=== PATIENT | female | born 1975 | race Caucasian/White ===

== ENCOUNTER 2017-11-21 14:00 | Emergency (ER) | payer SELFPAY ==
[2017-11-21 14:55] LABS: BILIRUBIN,URINE NEGATIVE (NEGATIVE); GLUCOSE, URINE (UA) NEGATIVE (NEGATIVE); KETONES,URINE (UA) TRACE mg/dL (NEGATIVE); LEUKOCYTE ESTERASE, URINE NEGATIVE (NEGATIVE); NITRITE,URINE NEGATIVE (NEGATIVE); OCCULT BLOOD,URINE MODERATE (NEGATIVE); PROTEIN,URINE NEGATIVE (NEGATIVE); UROBILINOGEN,URINE 0.2 (NORMAL) E.U./dL (NORMAL)
[2017-11-21 14:58] LABS: CLARITY,URINE CLEAR (CLEAR)
[2017-11-21 15:14] LABS: BACTERIA,URINE Few /HPF (None Seen); RBC,URINE 0-5 /HPF (0-5); SQUAMOUS EPITHELIAL CELL,UR MANY Squamous (<= Few)
[2017-11-21] MEDS ORDERED: SODIUM CHLORIDE 0.9% 1,000 ML IV ONE (16:09)
[2017-11-21] MEDS ORDERED: ACETAMINOPHEN 1,000 MG/100 ML 100 ML IV STA (16:19)
[2017-11-21 16:42] LABS: BASOPHILS # (AUTO) 0.1 10^3/uL (0.0-0.1); BASOPHILS % (AUTO) 0.5 %; EOSINOPHILS # (AUTO) 0.1 10^3/uL (0.0-0.7); EOSINOPHILS % (AUTO) 0.5 %; HGB - HEMOGLOBIN 15.5 g/dL (12.0-16.0); LYMPHOCYTES # (AUTO) 1.9 10^3/uL (1.5-3.5); LYMPHOCYTES % (AUTO) 17.3 %; MEAN CORPUSCULAR HEMOGLOBIN 31.3 pg (27.0-31.0); MEAN CORPUSCULAR HGB CONC 33.1 g/dL (32.0-36.0); MEAN CORPUSCULAR VOLUME 94.7 fL (81.0-99.0); MONOCYTES # (AUTO) 0.4 10^3/uL (0.0-1.0); MONOCYTES % (AUTO) 3.2 %; NEUTROPHILS # (AUTO) 8.8 10^3/uL (1.5-6.6); NEUTROPHILS % (AUTO) 78.5 %; PLT - PLATELET COUNT 273 10^3/uL (130-450); RED BLOOD COUNT 4.95 10^6/uL (4.20-5.40); RED CELL DISTRIBUTION WIDTH 12.9 % (12.0-15.0); WHITE BLOOD COUNT 11.2 x10^3/uL (4.8-10.8)
--- NOTE | 2017-11-21 16:54 | ED Physician Documentation ---
PD HPI ABD PAIN - Stated complaint Stated Complaint: ABD PX - Chief complaint Chief Complaint: Abd Pain - History obtained from History obtained from: Patient - History of Present Illness Timing - onset: Yesterday Timing - details: Gradual onset Quality: Pain Location: RLQ, Suprapubic Worsened by: Palpation Associated symptoms: Nausea, Diarrhea, Vaginal bleeding (spotting). No: Fever, Vomiting, Dysuria, Vaginal dc Similar symptoms before: Diagnosis (Feels similar to when she had an ectopic years ago.) - Treatment prior to arrival Treatment prior to arrival: Yesterday she started taking amoxicillin from an old supply. - Additional information Additional information: The patient is a 42-year-old female who presents with right lower quadrant/ pelvic pain that started yesterday and has become worse today. She reports nausea, without vomiting. She denies fever or dysuria. She has had scant vaginal spotting, and states that her last normal menstrual period was one week ago. She reports having watery diarrhea for years, but that it has been worse recently. Past surgical history is significant for 2, bilateral tubal ligation, and cholecystectomy. She started taking amoxicillin yesterday, from an old supply she had left over from a previous urinary tract infection. She reports her pain today feels similar to when she previously had an ectopic . Review of Systems Constitutional: denies: Fever Nose: denies: Congestion Throat: denies: Sore throat Cardiac: denies: Chest pain / pressure Respiratory: denies: Dyspnea, Cough GI: reports: Abdominal Pain, Nausea, Diarrhea (chronically). denies: Vomiting : reports: LMP (1 week ago), Vaginal bleeding (spotting). 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, Tubal ligation, Breast implants - Present Medications Home Medications: Ambulatory Orders Medication Instructions Recorded Confirmed Alprazolam [Xanax] 1 mg ORAL TID PRN 05/08/17 05/08/17 Propranolol [Inderal] 20 mg ORAL TID 05/08/17 05/08/17 Amoxicillin 11/21/17 HYDROcod/ACETAM 5/325 [[facility] 5/325] 1 - 2 ea PO Q6H PRN #15 tablet 11/21/17 - Allergies Allergies/Adverse Reactions: Allergies Allergy/AdvReac Type Severity Reaction Status Date / Time Sulfa (Sulfonamide Allergy Unknown Verified 11/21/17 14:10 Antibiotics) - Social History Does the pt smoke?: Yes Smoking Status: Current every day smoker Does the pt drink ETOH?: No Does the pt have substance abuse?: No - Immunizations Immunizations are current?: No - POLST Patient has POLST: No PD ED PE NORMAL - Vitals Vital signs reviewed: Yes (normal) - General General: Alert and oriented X 3, Well developed/nourished - HEENT HEENT: Atraumatic, Moist mucous membranes, Pharynx benign - Neck Neck: No adenopathy - Cardiac Cardiac: RRR, No murmur - Respiratory Respiratory: No respiratory distress, Clear bilaterally - Abdomen Abdomen: Normal bowel sounds, Soft, No organomegaly, Other (Tenderness to palpation in the right lower quadrant, without rebound tenderness or guarding.) - Female Female : Caustics Loader present - Back Back: No CVA TTP - Derm Derm: No rash - Extremities Extremities: No edema, No calf tenderness / cord - Neuro Neuro: Alert and oriented X 3, No motor deficit, No sensory deficit PD ED PE EXPANDED - Female Female : Normal external, Adnexal Tenderness (Tenderness to palpation in the right adnexa.), Cultures sent, Caustics Loader present. No: Vaginal Bleeding, Vaginal Discharge, CMT, Adnexal Mass Results - Vitals Vitals: Vital Signs - 24 hr 11/21/17 11/21/17 14:07 19:18 Temperature 37.2 C 36.9 C Heart Rate 79 71 Respiratory 16 16 Rate Blood Pressure 110/84 H 118/75 O2 Saturation 99 100 Oxygen O2 Source Room air - Labs Labs: Laboratory Tests 11/21/17 11/21/17 11/21/17 14:15 14:15 16:30 WBC 11.2 H RBC 4.95 Hgb 15.5 Hct 46.9 MCV 94.7 MCH 31.3 H MCHC 33.1 RDW 12.9 Plt Count 273 MPV 9.0 Neut # 8.8 H Lymph # 1.9 [place] # 0.4 Eos # 0.1 Baso # 0.1 Absolute Nucleated RBC 0.00 Nucleated RBC % 0.0 Sodium Potassium Chloride Carbon Dioxide Anion Gap BUN Creatinine Estimated GFR (MDRD) Glucose Calcium Total Bilirubin AST ALT Alkaline Phosphatase Total Protein Albumin Globulin Albumin/Globulin Ratio Lipase Urine Color YELLOW Urine Clarity CLEAR Urine pH 6.0 Ur Specific [place] >=1.030 H >=1.030 H Urine Protein NEGATIVE Urine Glucose (UA) NEGATIVE Urine Ketones TRACE Urine Occult Blood MODERATE H Urine Nitrite NEGATIVE Urine Bilirubin NEGATIVE Urine Urobilinogen 0.2 (NORMAL) Ur Leukocyte Esterase NEGATIVE Urine RBC 0-5 Urine WBC 0-3 Ur Squamous Epith Cells MANY Squamous H Urine Bacteria Few Ur Microscopic Review INDICATED Urine Culture Comments NOT INDICATED Urine HCG, Qual NEGATIVE 11/21/17 16:30 WBC RBC Hgb Hct MCV MCH MCHC RDW Plt Count MPV Neut # Lymph # [place] # Eos # Baso # Absolute Nucleated RBC Nucleated RBC % Sodium 137 Potassium 3.5 Chloride 98 L Carbon Dioxide 25 Anion Gap 14.0 H BUN 13 Creatinine 0.7 Estimated GFR (MDRD) 92 Glucose 86 Calcium 10.3 Total Bilirubin 0.8 AST 19 ALT 19 Alkaline Phosphatase 59 Total Protein 8.2 Albumin 4.9 Globulin 3.3 Albumin/Globulin Ratio 1.5 Lipase 23 Urine Color Urine Clarity Urine pH Ur Specific [place] Urine Protein Urine Glucose (UA) Urine Ketones Urine Occult Blood Urine Nitrite Urine Bilirubin Urine Urobilinogen Ur Leukocyte Esterase Urine RBC Urine WBC Ur Squamous Epith Cells Urine Bacteria Ur Microscopic Review Urine Culture Comments Urine HCG, Qual - Rads (name of study) CT abd/pelvis w/IV contrast Radiology: Prelim report reviewed, EMP read contemporaneously, See rad report ( Negative abdomen and pelvis CT. No evidence of bowel obstruction or appendicitis.) PD MEDICAL DECISION MAKING - ED course Complexity details: reviewed results, re-evaluated patient, considered differential, d/w patient ED course: The underlying cause of the patient's right lower quadrant abdominal pain is uncertain at this time. CT scan of the abdomen and pelvis with IV contrast reveals a normal appendix, no free fluid, normal ovaries, and no other evidence to explain the patient's symptoms. Urinalysis is negative for urinary tract infection, and urine test is negative, making ectopic very unlikely. The possibilities of early appendicitis, PID, or tubo-ovarian abscess were considered, and I discussed these with the patient. Treatment in the emergency department included administration of normal saline 1 L IV, and acetaminophen 1 g IV. The patient's symptoms improved with the above treatment, and on reexamination she exhibits continued, but decreased tenderness to palpation in the right lower quadrant. She is being discharged with a prescription for Vicodin, 15 tablets. I discussed with her the importance of urgent follow-up, as well as potentially worrisome signs or symptoms that should prompt reevaluation in the emergency department. Cervical cultures are pending. Departure - Departure Disposition: 01 Home, Self Care Clinical Impression: Abdominal pain Qualifiers: Abdominal location: lower abdomen, unspecified Qualified Code(s): R10.30 - Lower abdominal pain, unspecified Condition: Stable Instructions: ED Abdominal Pain Unkn Cause Follow-Up: [facility] [Provider Group] [facility] [Provider Group] Prescriptions: HYDROcod/ACETAM 5/325 [[facility] 5/325] 1 - 2 ea PO Q6H PRN #15 tablet PRN Reason: Pain Comments: You can use Vicodin as prescribed if needed for pain. Follow up with primary care physician. Call for appointment. Return to the emergency department if you develop increasing abdominal pain, persistent vomiting, or otherwise worsening symptoms. Discharge Date/Time: 11/21/17 19:46
[2017-11-21 16:58] LABS: ALBUMIN 4.9 g/dL (3.2-5.5); ALBUMIN/GLOBULIN RATIO 1.5 (1.0-2.2); BILIRUBIN,TOTAL 0.8 mg/dL (0.2-1.0); CALCIUM 10.3 mg/dL (8.5-10.3); CREATININE 0.7 mg/dL (0.4-1.0); TOTAL PROTEIN 8.2 g/dL (6.7-8.2)
[2017-11-21] MEDS ORDERED: IOPAMIDOL-300 100 ML VIAL ONE (17:15)
[2017-11-21] MEDS ORDERED: IOPAMIDOL-300 100 ML VIAL IVP ONE (18:20)
[2017-11-21 18:22] LABS: HCG UR QUAL NEGATIVE
--- NOTE | 2017-11-21 18:45 | CT Report ---
EXAM: CT ABDOMEN AND PELVIS EXAM DATE: 11/21/2017 06:17 PM. CLINICAL HISTORY: Right lower quadrant pain COMPARISONS: None. TECHNIQUE: Routine helical CT imaging was performed through the abdomen and pelvis. IV contrast: ISOV UE 300 100mL. Enteric contrast: No. Reconstructions: Coronal and sagittal. In accordance with CT protocol optimization, one or more of the following dose reduction techniques w ere utilized for this exam: automated exposure control, adjustment of mA and/or KV based on patient s ize, or use of iterative reconstructive technique. FINDINGS: Lung Bases: Unremarkable. Liver: Normal. No masses. Gallbladder/Bile Ducts: The gallbladder is surgically absent. Spleen: Normal. Pancreas: Normal. Adrenal Glands: Normal. Kidneys: Normal. No masses or hydronephrosis. Peritoneal Cavity/Bowel: Normal. No free fluid, free air or adenopathy. No masses or acute inflammato ry process. The appendix is well visualized and normal. Pelvic Organs: Normal. The bladder and visualized pelvic organs are within normal limits. Tubal ligat ion clips are in place. Vasculature: No aneurysms or other significant abnormality. Bones: No significant abnormality. Other: None. IMPRESSION: Negative abdomen and pelvis CT. No evidence of bowel obstruction or appendicitis. [facility] Referring Provider Line: [phone] SITE ID: [id number]
[2017-11-21 19:22] VITALS: BP 118/75
== END 2017-11-21 19:46 | disposition home or self-care (01) ==
LOC: ED 14:00
DX: R10.31 Right lower quadrant pain (principal); F17.200 Nicotine dependence, unspecified, uncomplicated
CPT/HCPCS: 36415; 74177; 80053; 81001; 81025; 83690; 85025; 87491; 87591; 96365; 99284; J0131; Q9967; 81003; 87086

== ENCOUNTER 2018-04-07 04:58 | Emergency (ER) | payer OTHER ==
[2018-04-07] MEDS ORDERED: SODIUM CHLORIDE 0.9% 1,000 ML IV STA (05:18)
[2018-04-07] MEDS ORDERED: ONDANSETRON 4 MG/2 ML VIAL IVP STA ×2 (05:18→06:11)
--- NOTE | 2018-04-07 05:18 | ED Physician Documentation ---
PD HPI NVD - Stated complaint Stated Complaint: VOMITING,DIARRHEA - Chief complaint Chief Complaint: Abd Pain - History obtained from History obtained from: Patient - History of Present Illness Timing - onset: Today Timing - duration: Hours Timing - details: Gradual onset Associated symptoms: Abdominal pain. No: Fever Improved by: Other (no ameliorating factors) Worsened by: Other (no exacerbating factors) Recently seen: Not recently seen - Additonal information Additional information: c/o nausea, vomiting, diarrhea with generalized abdominal cramping x several hours. Also awoke this morning with LUE stiffness and numbness. denies chest pain or pressure. Review of Systems Constitutional: denies: Fever, Chills, Sweats Cardiac: reports: Reviewed and negative Respiratory: reports: Reviewed and negative GI: reports: Abdominal Pain, Nausea, Vomiting, Diarrhea : denies: Dysuria, Frequency, Now EGA Musculoskeletal: reports: Neck pain, Extremity pain. denies: Extremity swelling Neurologic: reports: Numbness (paresthesias LUE). 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, Tubal ligation, Breast implants - Present Medications Home Medications: Ambulatory Orders Medication Instructions Recorded Confirmed Alprazolam [Xanax] 1 mg ORAL TID PRN 05/08/17 05/08/17 Propranolol [Inderal] 20 mg ORAL TID 05/08/17 05/08/17 Amoxicillin 11/21/17 HYDROcod/ACETAM 5/325 [[place] 5/325] 1 - 2 ea PO Q6H PRN #15 tablet 11/21/17 Diphenoxylate/Atropine [Lomotil] 1 each PO QID PRN #20 tablet 04/07/18 Ondansetron Odt [Zofran] 4 mg TL Q6H PRN #10 tablet 04/07/18 - Allergies Allergies/Adverse Reactions: Allergies Allergy/AdvReac Type Severity Reaction Status Date / Time Sulfa (Sulfonamide Allergy Unknown Verified 04/07/18 05:10 Antibiotics) - Social History Does the pt smoke?: Yes Smoking Status: Current every day smoker Does the pt drink ETOH?: No Does the pt have substance abuse?: No - Immunizations Immunizations are current?: No - POLST Patient has POLST: No PD ED PE NORMAL - Vitals Vital signs reviewed: Yes - General General: Alert and oriented X 3, No acute distress, Well developed/nourished - HEENT HEENT: Other (dry mucous membranes) - Neck Neck: Supple, no meningeal sign, No bony TTP - Cardiac Cardiac: RRR, No murmur, No gallop, No rub - Respiratory Respiratory: No respiratory distress, Clear bilaterally - Abdomen Abdomen: Soft, Non tender, Non distended - Back Back: No CVA TTP - Derm Derm: Normal color, Warm and dry Results - Vitals Vitals: Vital Signs - 24 hr 04/07/18 04/07/18 04/07/18 05:06 05:40 06:00 Temperature 36.1 C L Heart Rate 72 Respiratory 18 17 17 Rate Blood Pressure 116/89 H 108/74 O2 Saturation 100 98 04/07/18 04/07/18 04/07/18 06:03 06:34 06:35 Temperature Heart Rate Respiratory 17 16 Rate Blood Pressure 111/75 118/105 H O2 Saturation 04/07/18 04/07/18 06:53 07:40 Temperature Heart Rate 85 Respiratory 16 18 Rate Blood Pressure 96/71 O2 Saturation 96 Oxygen O2 Source Room air - EKG (time done) No standard instances Rate: Rate (enter#) (66) Rhythm: NSR [place]: Normal Intervals: Normal [place] QRS: Normal Ischemia: Normal ST segments, T wave inversion (isolated III) - Labs Labs: Laboratory Tests 04/07/18 04/07/18 05:35 05:35 WBC 5.9 RBC 4.52 Hgb 14.7 Hct 43.1 MCV 95.5 MCH 32.6 H MCHC 34.1 RDW 12.7 Plt Count 254 MPV 9.0 Neut # (Auto) 4.1 Lymph # (Auto) 1.2 L [place] # (Auto) 0.4 Eos # (Auto) 0.1 Baso # (Auto) 0.1 Absolute Nucleated RBC 0.01 Nucleated RBC % 0.1 Sodium 141 Potassium 3.9 Chloride 102 Carbon Dioxide 30 Anion Gap 9.0 BUN 12 Creatinine 0.6 Estimated GFR (MDRD) 110 Glucose 103 H Calcium 9.0 Total Bilirubin 0.7 AST 24 ALT 21 Alkaline Phosphatase 54 Total Protein 7.7 Albumin 4.4 Globulin 3.3 Albumin/Globulin Ratio 1.3 Lipase 36 PD MEDICAL DECISION MAKING - ED course Complexity details: reviewed results, re-evaluated patient, considered differential, d/w patient ED course: patient reported improvement after IV fluids and zofran, and PO lomotil. reassuring EKG, unclear what might be causing the LUE paresthesias, although she says she feels she might have strained her neck due to vomiting (thus could be causing cervical radiculopathy) - Sepsis Event Vital Signs: Vital Signs - 24 hr 04/07/18 04/07/18 04/07/18 05:06 05:40 06:00 Temperature 36.1 C L Heart Rate 72 Respiratory 18 17 17 Rate Blood Pressure 116/89 H 108/74 O2 Saturation 100 98 04/07/18 04/07/18 04/07/18 06:03 06:34 06:35 Temperature Heart Rate Respiratory 17 16 Rate Blood Pressure 111/75 118/105 H O2 Saturation 04/07/18 04/07/18 06:53 07:40 Temperature Heart Rate 85 Respiratory 16 18 Rate Blood Pressure 96/71 O2 Saturation 96 Oxygen O2 Source Room air Departure - Departure Disposition: 01 Home, Self Care Clinical Impression: Vomiting, Diarrhea Condition: Good Instructions: ED Vomiting Diarrhea Nonspecific Ad Prescriptions: Diphenoxylate/Atropine [Lomotil] 1 each PO QID PRN #20 tablet PRN Reason: Diarrhea Ondansetron Odt [Zofran] 4 mg TL Q6H PRN #10 tablet PRN Reason: Nausea / Vomiting Forms: Activity restrictions Discharge Date/Time: 04/07/18 07:40
[2018-04-07] MEDS ORDERED: DIPHENOX/ATROPINE 2.5/0.025 MG TABLET PO STA (05:19)
[2018-04-07 05:53] LABS: BASOPHILS # (AUTO) 0.1 10^3/uL (0.0-0.1); BASOPHILS % (AUTO) 0.9 %; EOSINOPHILS # (AUTO) 0.1 10^3/uL (0.0-0.7); EOSINOPHILS % (AUTO) 1.3 %; HGB - HEMOGLOBIN 14.7 g/dL (12.0-16.0); LYMPHOCYTES # (AUTO) 1.2 10^3/uL (1.5-3.5); LYMPHOCYTES % (AUTO) 20.9 %; MEAN CORPUSCULAR HEMOGLOBIN 32.6 pg (27.0-31.0); MEAN CORPUSCULAR HGB CONC 34.1 g/dL (32.0-36.0); MEAN CORPUSCULAR VOLUME 95.5 fL (81.0-99.0); MONOCYTES # (AUTO) 0.4 10^3/uL (0.0-1.0); MONOCYTES % (AUTO) 6.2 %; NEUTROPHILS # (AUTO) 4.1 10^3/uL (1.5-6.6); NEUTROPHILS % (AUTO) 70.7 %; PLT - PLATELET COUNT 254 10^3/uL (130-450); RED BLOOD COUNT 4.52 10^6/uL (4.20-5.40); RED CELL DISTRIBUTION WIDTH 12.7 % (12.0-15.0); WHITE BLOOD COUNT 5.9 x10^3/uL (4.8-10.8)
[2018-04-07 06:05] LABS: ALBUMIN 4.4 g/dL (3.2-5.5); ALBUMIN/GLOBULIN RATIO 1.3 (1.0-2.2); BILIRUBIN,TOTAL 0.7 mg/dL (0.2-1.0); CREATININE 0.6 mg/dL (0.4-1.0); TOTAL PROTEIN 7.7 g/dL (6.7-8.2)
[2018-04-07 07:50] VITALS: BP 96/71
== END 2018-04-07 07:40 | disposition home or self-care (01) ==
LOC: ED 04:58
DX: R11.10 Vomiting, unspecified (principal); R19.7 Diarrhea, unspecified; R20.2 Paresthesia of skin; F17.200 Nicotine dependence, unspecified, uncomplicated
CPT/HCPCS: 36415; 80053; 83690; 85025; 93005; 96361; 96374; 96376; 99283; 99284; A9270